=== PATIENT | female | born 1985 | race Caucasian/White ===

== ENCOUNTER 2021-04-02 09:11 | Observation (INO) | payer MEDICAID ==
[2021-04-02 09:16] VITALS: BMI 47.2
[2021-04-02] MEDS ORDERED: hydrALAZINE 20 MG/ML VIAL SLOW IVP PRN (10:25)
[2021-04-02] MEDS ORDERED: Lactated Ringer's 1,000 ML IV SCH (10:45)
[2021-04-02 11:15] LABS: #Eosinphils 0.1 10x3/uL (0.0-0.5); #Monocytes 0.8 10x3/uL (0.0-1.1); #Neutrophils 7.8 10x3/uL (1.5-8.4); %Basophils 0.4 % (0.0-2.0); %Eosinophils 1.1 % (0.0-6.0); %Lymphocytes 23.5 % (18.0-47.0); %Monocytes 6.7 % (0.0-10.0); Hemoglobin 11.4 g/dL (12.0-15.5); Mean Corpuscular Hemoglobin 29.5 pg (27.0-33.0); Mean Corpuscular Volume 86.8 fl (81.6-98.3); Mean Platelet Volume 11.5 fl (7.4-10.4); Platelet Count 230 10x3/uL (150-450); RBC Distribution Width 12.8 % (11.5-14.5); Red Blood Cell (RBC) Count 3.86 10x6/uL (3.90-5.03); White Blood Cell (WBC) Count 11.4 10x3/uL (3.5-10.5)
[2021-04-02 11:22] LABS: ALT (SGPT) 8 U/L (8-55); AST (SGOT) 10 U/L (5-34); Albumin 3.6 g/dL (3.5-5.0); Alkaline Phosphatase 79 U/L (40-110); Anion Gap 15 mmol/L (10-20); BUN (Urea Nitrogen) 6 mg/dL (7.0-18.7); Bilirubin, Total 0.2 mg/dL (0.2-1.2); Calc. Creatinine Clearance 229 mL/min (70-130); Calcium 8.8 mg/dL (7.8-10.44); Carbon Dioxide 22 mmol/L (22-29); Chloride 106 mmol/L (98-107); Globulin 2.9 g/dL (2.4-3.5); Glucose 103 mg/dL (70-105); Potassium 4.5 mmol/L (3.5-5.1); Protein, Total 6.5 g/dL (6.0-8.3); Sodium 138 mmol/L (136-145)
[2021-04-02 11:30] LABS: Bilirubin Neg (Negative); Blood, Urine 10 (Negative); Clarity Cloudy (Clear); Glucose, Urine (Dipstick) Normal (Negative); Ketone, Urine 5 mg/dL (Negative); Leukocyte 100 (Negative); Nitrite Negative (Negative); Protein, Urine (Dipstick) 30 mg/dl (Neg-Trace); Urobilinogen Normal mg/dL (Less than 2)
[2021-04-02 11:36] LABS: Urine Culture Reflex No No
[2021-04-02 11:37] LABS: Bacteria/HPF 3+ HPF (None Seen); RBC/HPF 0-3 HPF (0-3)
[2021-04-02] MEDS ORDERED: Acetaminophen 500 MG TAB PO SCH (12:00)
[2021-04-02 12:14] LABS: SARS-CoV-2 NAA Rapid Test Not Detected (NotDetected)
[2021-04-02] MEDS ORDERED: Butorphanol Tartrate 1 MG/ML VIAL SLOW IVP SCH (14:15)
[2021-04-02 15:09] LABS: Bilirubin Neg (Negative); Blood, Urine 10 (Negative); Clarity Slightly Cloudy (Clear); Glucose, Urine (Dipstick) Normal (Negative); Ketone, Urine Negative (Negative); Leukocyte 500 (Negative); Nitrite Negative (Negative); Protein, Urine (Dipstick) 30 mg/dl (Neg-Trace); Urobilinogen Normal mg/dL (Less than 2)
[2021-04-02 15:16] LABS: Urine Culture Reflex No No
[2021-04-02 15:17] LABS: Bacteria/HPF 4+ HPF (None Seen)
[2021-04-02 15:18] LABS: RBC/HPF 0-3 HPF (0-3); Squamous Epithelial 21-50 HPF (0-3)
[2021-04-02] MEDS ORDERED: Acetaminophen 325 MG TAB PO PRN (15:50)
[2021-04-02] MEDS: Lactated Ringer's 1,000 ML IV SCH (16:41)
[2021-04-02] MEDS: cefTRIAXone\\ROCEPHIN 1 GM in Sodium Chloride 0.9% 100 ML IVPB SCH (16:44)
[2021-04-02] MEDS: Ondansetron PF 4 MG/2 ML Vial IVP PRN (17:41)
[2021-04-02] MEDS ORDERED: Acetaminophen/Codeine 30-300mg Tablet PO PRN (19:24)
[2021-04-02] MEDS: Acetaminophen/Codeine 30-300mg Tablet PO PRN ×2 (19:50→22:49)
[2021-04-03] MEDS: Lactated Ringer's 1,000 ML IV SCH ×3 (01:40→18:17)
[2021-04-03] MEDS: Ondansetron PF 4 MG/2 ML Vial IVP PRN ×2 (01:40→11:03)
[2021-04-03] MEDS: Acetaminophen/Codeine 30-300mg Tablet PO PRN ×3 (04:20→15:31)
[2021-04-03] MEDS: cefTRIAXone\\ROCEPHIN 1 GM in Sodium Chloride 0.9% 100 ML IVPB SCH (15:37)
[2021-04-03] MEDS: Metoclopramide HCl 10 MG/2 ML VIAL IVP SCH ×4 (17:10→20:01)
[2021-04-03] MEDS: diphenhydrAMINE 50 MG/ML VIAL IVP SCH ×2 (17:10→18:17)
[2021-04-03 17:45] LABS: Bilirubin Neg (Negative); Blood, Urine 10 (Negative); Clarity Slightly Cloudy (Clear); Glucose, Urine (Dipstick) Normal (Negative); Ketone, Urine Negative (Negative); Leukocyte 25 (Negative); Nitrite Negative (Negative); Protein, Urine (Dipstick) Negative (Neg-Trace); Urobilinogen Normal mg/dL (Less than 2)
[2021-04-03 17:55] LABS: Bacteria/HPF None Seen HPF (None Seen); Mucous/LPF 1+ LPF (<2+); Oval Fat Bodies/HPF Rare HPF (None Seen); WBC/HPF 0-3 HPF (0-3)
[2021-04-03] MEDS ORDERED: traZODone HCl 50 MG TAB PO ONE (21:00)
[2021-04-04] MEDS: Lactated Ringer's 1,000 ML IV SCH ×2 (01:09→08:06)
[2021-04-04] MEDS: Acetaminophen/Codeine 30-300mg Tablet PO PRN ×3 (04:10→11:53)
[2021-04-04] MEDS: Ondansetron PF 4 MG/2 ML Vial IVP PRN (04:10)
[2021-04-04 11:13] VITALS: BP 130/72; TEMP 97.8
== END 2021-04-04 12:40 | disposition home or self-care (01) ==
LOC: CSHLD/OP 09:11 → CSHPP 17:17
PROVIDERS: ADMIT Obstetrics & Gynecology; ATTEND Obstetrics & Gynecology
DX: O99.891 Other specified diseases and conditions complicating pregnancy (principal); O99.342 Other mental disorders complicating pregnancy, second trimester; O09.522 Supervision of elderly multigravida, second trimester; O99.212 Obesity complicating pregnancy, second trimester; O99.322 Drug use complicating pregnancy, second trimester; O09.32 Supervision of pregnancy with insufficient antenatal care, second trimester; M54.9 Dorsalgia, unspecified; R10.9 Unspecified abdominal pain; F31.9 Bipolar disorder, unspecified; F43.10 Post-traumatic stress disorder, unspecified; F41.9 Anxiety disorder, unspecified; F12.90 Cannabis use, unspecified, uncomplicated; Z3A.22 22 weeks gestation of pregnancy; Z20.822 Contact with and (suspected) exposure to COVID-19; Z90.49 Acquired absence of other specified parts of digestive tract; Z87.59 Personal history of other complications of pregnancy, childbirth and the puerperium; Z87.891 Personal history of nicotine dependence; Z79.899 Other long term (current) drug therapy
CPT/HCPCS: 36415; 76705; 76775; 80053; 81001; 85025; 87086; 99285; G0378; J0595; J0696; J1200; J2405; J2765; J3490; J7120; U0002

== ENCOUNTER 2021-04-22 16:44 | Day surgery (SDC) | payer MEDICAID ==
[2021-04-22] MEDS ORDERED: hydrALAZINE 20 MG/ML VIAL SLOW IVP PRN (17:33)
[2021-04-22] MEDS ORDERED: Morphine 10 MG/ML VIAL IM SCH (17:45)
[2021-04-22] MEDS ORDERED: Promethazine HCl 25 MG/ML VIAL IM SCH (17:45)
[2021-04-22 18:05] VITALS: BMI 48.0
[2021-04-22 18:40] LABS: Bilirubin Neg (Negative); Blood, Urine Negative (Negative); Clarity Clear (Clear); Glucose, Urine (Dipstick) Normal (Negative); Ketone, Urine Negative (Negative); Leukocyte Negative (Negative); Nitrite Negative (Negative); Protein, Urine (Dipstick) Negative (Neg-Trace); Specific Gravity, Urine 1.015 (1.002-1.036); Urobilinogen Normal mg/dL (Less than 2)
[2021-04-22 18:41] LABS: Urine Culture Reflex No No
[2021-04-22 18:42] LABS: Amphetamine Not Detected (NotDetected); Barbiturates Screen Not Detected (NotDetected); Benzodiazepine Screen Detected (NotDetected); Cocaine Metabolite Screen Not Detected (NotDetected); Methadone Not Detected (NotDetected); Methamphetamine Not Detected (NotDetected); Opiate Screen Not Detected (NotDetected); Oxycodone Screen Not Detected (NotDetected); Phencyclidine (PCP) Not Detected (NotDetected); THC/Cannabinoid Screen Detected (NotDetected); Tricyclic Screen Detected (NotDetected)
[2021-04-22 18:48] LABS: Bacteria/HPF None Seen HPF (None Seen); RBC/HPF None Seen HPF (0-3); Squamous Epithelial 0-3 HPF (0-3); WBC/HPF None Seen HPF (0-3)
== END 2021-04-22 19:55 | disposition home or self-care (01) ==
LOC: CSHLD/OP 16:44
PROVIDERS: ATTEND Student in an Organized Health Care Education/Training Program
DX: O99.891 Other specified diseases and conditions complicating pregnancy (principal); O09.522 Supervision of elderly multigravida, second trimester; O99.212 Obesity complicating pregnancy, second trimester; O99.342 Other mental disorders complicating pregnancy, second trimester; O99.322 Drug use complicating pregnancy, second trimester; M25.552 Pain in left hip; R11.0 Nausea; F43.10 Post-traumatic stress disorder, unspecified; F41.9 Anxiety disorder, unspecified; F31.9 Bipolar disorder, unspecified; F12.90 Cannabis use, unspecified, uncomplicated; F19.90 Other psychoactive substance use, unspecified, uncomplicated; Z3A.25 25 weeks gestation of pregnancy; Z79.899 Other long term (current) drug therapy; Z87.59 Personal history of other complications of pregnancy, childbirth and the puerperium; Z90.49 Acquired absence of other specified parts of digestive tract; Z87.891 Personal history of nicotine dependence; Z98.890 Other specified postprocedural states
CPT/HCPCS: 80306; 81001; J2270; J2550

== ENCOUNTER 2021-04-24 11:02 | Observation (INO) | payer MEDICAID ==
[2021-04-24] MEDS ORDERED: Promethazine HCl 25 MG in Sodium Chloride 0.9% 50 ML IVPB PRN (13:12)
[2021-04-24] MEDS ORDERED: hydrALAZINE 20 MG/ML VIAL SLOW IVP PRN (13:15)
[2021-04-24] MEDS ORDERED: Lactated Ringer's 1,000 ML IV SCH (13:15)
[2021-04-24 14:19] LABS: #Eosinphils 0.2 10x3/uL (0.0-0.5); #Monocytes 0.8 10x3/uL (0.0-1.1); #Neutrophils 6.5 10x3/uL (1.5-8.4); %Basophils 0.4 % (0.0-2.0); %Eosinophils 1.8 % (0.0-6.0); %Lymphocytes 22.7 % (18.0-47.0); %Neutrophils 66.6 % (40.0-75.0); Hemoglobin 10.1 g/dL (12.0-15.5); Mean Corpuscular HGB CONC 34.1 g/dL (32.0-36.0); Mean Corpuscular Hemoglobin 30.4 pg (27.0-33.0); Mean Corpuscular Volume 89.2 fl (81.6-98.3); Mean Platelet Volume 10.9 fl (7.4-10.4); Platelet Count 213 10x3/uL (150-450); RBC Distribution Width 13.1 % (11.5-14.5); Red Blood Cell (RBC) Count 3.32 10x6/uL (3.90-5.03); White Blood Cell (WBC) Count 9.7 10x3/uL (3.5-10.5)
[2021-04-24 14:46] LABS: ALT (SGPT) 6 U/L (8-55); AST (SGOT) 6 U/L (5-34); Albumin 3.2 g/dL (3.5-5.0); Alkaline Phosphatase 77 U/L (40-110); Anion Gap 11 mmol/L (10-20); BUN (Urea Nitrogen) 7 mg/dL (7.0-18.7); Bilirubin, Total 0.1 mg/dL (0.2-1.2); Calc. Creatinine Clearance 0 mL/min (70-130); Calcium 8.5 mg/dL (7.8-10.44); Carbon Dioxide 23 mmol/L (22-29); Chloride 108 mmol/L (98-107); Globulin 2.8 g/dL (2.4-3.5); Glucose 118 mg/dL (70-105); Lipase 22 U/L (8-78); Potassium 3.7 mmol/L (3.5-5.1); Sodium 138 mmol/L (136-145)
[2021-04-24] MEDS ORDERED: Promethazine HCl 25 MG, Admixture Fee 1 EACH in Sodium Chloride 0.9% 50 ML IVPB PRN (15:00)
[2021-04-24] MEDS ORDERED: traMADol HCl 50 MG TAB PO SCH (15:00)
[2021-04-24] MEDS ORDERED: traZODone HCl 50 MG TAB PO PRN (15:45)
[2021-04-24 16:10] VITALS: BMI 48.0
[2021-04-24] MEDS ORDERED: Ondansetron PF 4 MG/2 ML Vial IVP SCH (17:00)
[2021-04-24] MEDS ORDERED: Morphine 4 MG/ML VIAL SLOW IVP SCH (17:00)
[2021-04-24] MEDS ORDERED: Morphine 4 MG/ML VIAL ONE (17:02)
[2021-04-24] MEDS ORDERED: Ondansetron PF 4 MG/2 ML Vial ONE (17:02)
[2021-04-24] MEDS ORDERED: Promethazine 25 MG TAB PO SCH ×2 (18:00→19:00)
[2021-04-24] MEDS: traMADol HCl 50 MG TAB PO PRN (20:06)
[2021-04-24] MEDS: Promethazine 25 MG TAB PO SCH ×2 (20:48→20:53)
[2021-04-24] MEDS ORDERED: traZODone HCl 150 MG TAB PO SCH (21:00)
[2021-04-24 21:51] LABS: HIV (1/2) Antibody/Antigen Non-Reactive (NonReactive); HIV 1/2 INDEX 0.09 S/CO (<1.00)
[2021-04-24] MEDS: Lactated Ringer's 1,000 ML IV SCH (22:06)
[2021-04-24 22:22] LABS: SARS-CoV-2 NAA Rapid Test Not Detected (NotDetected)
[2021-04-24] MEDS: Acetaminophen 500 MG TAB PO SCH (23:59)
[2021-04-25] MEDS: Promethazine 25 MG TAB PO SCH ×3 (01:00→08:17)
[2021-04-25] MEDS: Acetaminophen 500 MG TAB PO SCH (04:40)
[2021-04-25] MEDS: Lactated Ringer's 1,000 ML IV SCH (04:41)
[2021-04-25 07:41] VITALS: BP 119/67; TEMP 98.6
[2021-04-25] MEDS: traMADol HCl 50 MG TAB PO PRN (08:16)
== END 2021-04-25 09:09 | disposition home or self-care (01) ==
LOC: CSHLD/OP 11:02 → EDSTATUS 11:03 → CSHANTE 11:03
PROVIDERS: ADMIT Obstetrics & Gynecology; ATTEND Obstetrics & Gynecology
DX: O99.891 Other specified diseases and conditions complicating pregnancy (principal); O09.522 Supervision of elderly multigravida, second trimester; O99.212 Obesity complicating pregnancy, second trimester; O99.342 Other mental disorders complicating pregnancy, second trimester; O99.322 Drug use complicating pregnancy, second trimester; O09.32 Supervision of pregnancy with insufficient antenatal care, second trimester; R11.2 Nausea with vomiting, unspecified; M54.50 Low back pain, unspecified; M79.605 Pain in left leg; M79.604 Pain in right leg; F31.9 Bipolar disorder, unspecified; F41.9 Anxiety disorder, unspecified; F43.10 Post-traumatic stress disorder, unspecified; F19.90 Other psychoactive substance use, unspecified, uncomplicated; F12.90 Cannabis use, unspecified, uncomplicated; Z3A.25 25 weeks gestation of pregnancy; Z20.822 Contact with and (suspected) exposure to COVID-19; Z87.59 Personal history of other complications of pregnancy, childbirth and the puerperium; Z90.49 Acquired absence of other specified parts of digestive tract; Z98.890 Other specified postprocedural states; Z87.891 Personal history of nicotine dependence; Z79.899 Other long term (current) drug therapy
CPT/HCPCS: 36415; 76819; 80053; 82150; 83690; 85025; 86850; 86900; 86901; 87389; 96374; 96375; G0378; J2270; J2405; J2550; J7120; Q0169; U0002

== ENCOUNTER 2021-04-26 11:44 | Day surgery (SDC) | payer MEDICAID ==
[2021-04-26] MEDS ORDERED: hydrALAZINE 20 MG/ML VIAL SLOW IVP PRN (14:39)
[2021-04-26] MEDS ORDERED: Metoclopramide HCl 10 MG/2 ML VIAL IM SCH (14:45)
== END 2021-04-26 17:20 | disposition home health service (06) ==
LOC: CSHLD/OP 11:44
PROVIDERS: ATTEND Obstetrics & Gynecology
DX: O99.352 Diseases of the nervous system complicating pregnancy, second trimester (principal); O09.522 Supervision of elderly multigravida, second trimester; O99.212 Obesity complicating pregnancy, second trimester; O09.32 Supervision of pregnancy with insufficient antenatal care, second trimester; O99.342 Other mental disorders complicating pregnancy, second trimester; O99.322 Drug use complicating pregnancy, second trimester; G43.909 Migraine, unspecified, not intractable, without status migrainosus; F31.9 Bipolar disorder, unspecified; F41.9 Anxiety disorder, unspecified; F43.10 Post-traumatic stress disorder, unspecified; F12.90 Cannabis use, unspecified, uncomplicated; F19.90 Other psychoactive substance use, unspecified, uncomplicated; Z3A.26 26 weeks gestation of pregnancy; Z87.59 Personal history of other complications of pregnancy, childbirth and the puerperium; Z90.49 Acquired absence of other specified parts of digestive tract; Z87.891 Personal history of nicotine dependence; Z79.899 Other long term (current) drug therapy
CPT/HCPCS: 99282; J2765

== ENCOUNTER 2021-05-17 14:58 | Day surgery (SDC) | payer MEDICAID, OTHER ==
[2021-05-17] MEDS ORDERED: Magnesium 2 GM/50 ML BAG (IN WATER) ONE (15:33)
[2021-05-17] MEDS ORDERED: Lorazepam 2 MG/ML VIAL ONE (16:16)
[2021-05-17 16:17] LABS: #Eosinphils 0.2 10x3/uL (0.0-0.5); #Monocytes 0.7 10x3/uL (0.0-1.1); #Neutrophils 7.4 10x3/uL (1.5-8.4); %Basophils 0.3 % (0.0-2.0); %Eosinophils 1.6 % (0.0-6.0); %Lymphocytes 19.3 % (18.0-47.0); %Monocytes 6.9 % (0.0-10.0); %Neutrophils 71.4 % (40.0-75.0); Hemoglobin 10.2 g/dL (12.0-15.5); Mean Corpuscular HGB CONC 33.8 g/dL (32.0-36.0); Mean Corpuscular Volume 88.8 fl (81.6-98.3); Mean Platelet Volume 10.9 fl (7.4-10.4); Platelet Count 263 10x3/uL (150-450); RBC Distribution Width 12.9 % (11.5-14.5); White Blood Cell (WBC) Count 10.3 10x3/uL (3.5-10.5)
[2021-05-17 16:56] LABS: ALT (SGPT) 14 U/L (8-55); AST (SGOT) 14 U/L (5-34); Albumin 3.1 g/dL (3.5-5.0); Alkaline Phosphatase 108 U/L (40-110); Anion Gap 14 mmol/L (10-20); BUN (Urea Nitrogen) 4 mg/dL (7.0-18.7); Bilirubin, Total 0.2 mg/dL (0.2-1.2); Calc. Creatinine Clearance 0 mL/min (70-130); Calcium 8.1 mg/dL (7.8-10.44); Carbon Dioxide 19 mmol/L (22-29); Globulin 2.4 g/dL (2.4-3.5); Glucose 162 mg/dL (70-105); Protein, Total 5.5 g/dL (6.0-8.3)
[2021-05-17] MEDS ORDERED: Acetaminophen 500 MG TAB ONE (17:00)
[2021-05-17 17:19] LABS: Chloride 108 mmol/L (98-107); Potassium 3.6 mmol/L (3.5-5.1); Sodium 137 mmol/L (136-145)
[2021-05-17] MEDS ORDERED: hydrALAZINE 20 MG/ML VIAL SLOW IVP PRN (18:49)
[2021-05-17] MEDS ORDERED: Cyclobenzaprine 10 MG TAB PO SCH (19:00)
[2021-05-17] MEDS ORDERED: Lactated Ringer's 1,000 ML IV SCH (19:00)
[2021-05-17] MEDS ORDERED: Morphine 4 MG/ML VIAL SLOW IVP SCH (20:15)
== END 2021-05-17 21:00 | disposition home or self-care (01) ==
LOC: CSHERS 14:58 → CSHLD/OP 17:26
PROVIDERS: ATTEND Family Medicine
DX: O99.891 Other specified diseases and conditions complicating pregnancy (principal); O09.523 Supervision of elderly multigravida, third trimester; O99.353 Diseases of the nervous system complicating pregnancy, third trimester; O99.213 Obesity complicating pregnancy, third trimester; O09.33 Supervision of pregnancy with insufficient antenatal care, third trimester; O99.343 Other mental disorders complicating pregnancy, third trimester; R55 Syncope and collapse; M54.50 Low back pain, unspecified; G89.29 Other chronic pain; F43.10 Post-traumatic stress disorder, unspecified; F41.9 Anxiety disorder, unspecified; Z3A.29 29 weeks gestation of pregnancy; Z87.59 Personal history of other complications of pregnancy, childbirth and the puerperium; Z90.49 Acquired absence of other specified parts of digestive tract; Z87.891 Personal history of nicotine dependence; Z79.899 Other long term (current) drug therapy
CPT/HCPCS: 70450; 80053; 84484; 85025; 93005; 93010; J2060; J2270; J3475

== ENCOUNTER 2021-06-23 19:10 | Emergency (ER) | payer OTHER ==
[2021-06-23] MEDS ORDERED: Morphine 4 MG/ML VIAL ONE (19:33)
[2021-06-23 20:12] LABS: #Basophils 0.1 10x3/uL (0.0-0.2); #Eosinphils 0.3 10x3/uL (0.0-0.5); #Monocytes 0.9 10x3/uL (0.0-1.1); #Neutrophils 6.1 10x3/uL (1.5-8.4); %Basophils 0.7 % (0.0-2.0); %Eosinophils 3.1 % (0.0-6.0); %Lymphocytes 23.3 % (18.0-47.0); %Monocytes 8.9 % (0.0-10.0); %Neutrophils 60.8 % (40.0-75.0); Hemoglobin 7.5 g/dL (12.0-15.5); Mean Corpuscular HGB CONC 32.8 g/dL (32.0-36.0); Mean Corpuscular Hemoglobin 29.8 pg (27.0-33.0); Mean Corpuscular Volume 90.9 fl (81.6-98.3); Mean Platelet Volume 9.6 fl (7.4-10.4); Platelet Count 301 10x3/uL (150-450); RBC Distribution Width 13.8 % (11.5-14.5); Red Blood Cell (RBC) Count 2.52 10x6/uL (3.90-5.03); White Blood Cell (WBC) Count 10.1 10x3/uL (3.5-10.5)
[2021-06-23 20:22] LABS: ALT (SGPT) 24 U/L (8-55); AST (SGOT) 16 U/L (5-34); Albumin 2.9 g/dL (3.5-5.0); Alkaline Phosphatase 90 U/L (40-110); Anion Gap 13 mmol/L (10-20); BUN (Urea Nitrogen) 17 mg/dL (7.0-18.7); Bilirubin, Total 0.1 mg/dL (0.2-1.2); Calc. Creatinine Clearance 0 mL/min (70-130); Calcium 9.3 mg/dL (7.8-10.44); Carbon Dioxide 26 mmol/L (22-29); Chloride 105 mmol/L (98-107); Globulin 2.9 g/dL (2.4-3.5); Glucose 120 mg/dL (70-105); Potassium 4.2 mmol/L (3.5-5.1); Protein, Total 5.8 g/dL (6.0-8.3); Sodium 140 mmol/L (136-145)
[2021-06-23 21:12] LABS: Bilirubin Neg (Negative); Blood, Urine 150 (Negative); Clarity Clear (Clear); Glucose, Urine (Dipstick) Normal (Negative); Ketone, Urine Negative (Negative); Leukocyte 25 (Negative); Nitrite Negative (Negative); Protein, Urine (Dipstick) Negative (Neg-Trace); Urobilinogen Normal mg/dL (Less than 2)
[2021-06-23 21:32] LABS: Bacteria/HPF 1+ HPF (None Seen); Mucous/LPF None Seen LPF (<2+); RBC/HPF 21-50 HPF (0-3); Squamous Epithelial 0-3 HPF (0-3)
== END 2021-06-23 21:15 | disposition home or self-care (01) ==
LOC: CSHERS 19:10
DX: R10.30 Lower abdominal pain, unspecified (principal); G89.18 Other acute postprocedural pain
CPT/HCPCS: 71275; 74177; 80053; 81003; 81015; 83605; 85025; 94760; 96374; J2270

== ENCOUNTER 2021-06-27 10:13 | Emergency (ER) | payer OTHER ==
[2021-06-27 11:50] LABS: Hemoglobin 7.7 g/dL (12.0-15.5); MDiff Complete? YES; Mean Corpuscular HGB CONC 31.3 g/dL (32.0-36.0); Mean Corpuscular Hemoglobin 29.2 pg (27.0-33.0); Mean Corpuscular Volume 93.2 fl (81.6-98.3); Mean Platelet Volume 9.1 fl (7.4-10.4); Platelet Count 322 10x3/uL (150-450); RBC Distribution Width 13.4 % (11.5-14.5); Red Blood Cell (RBC) Count 2.64 10x6/uL (3.90-5.03); White Blood Cell (WBC) Count 10.9 10x3/uL (3.5-10.5)
[2021-06-27 11:58] LABS: INR-International Normal Ratio 0.9; PTT 24.2 sec (22.0-33.0); Prothrombin Time 9.8 sec (9.5-12.1)
[2021-06-27 12:01] LABS: ALT (SGPT) 22 U/L (8-55); AST (SGOT) 11 U/L (5-34); Albumin 3.1 g/dL (3.5-5.0); Alkaline Phosphatase 126 U/L (40-110); Anion Gap 13 mmol/L (10-20); BUN (Urea Nitrogen) 16 mg/dL (7.0-18.7); Bilirubin, Total 0.1 mg/dL (0.2-1.2); Calc. Creatinine Clearance 0 mL/min (70-130); Calcium 8.7 mg/dL (7.8-10.44); Carbon Dioxide 24 mmol/L (22-29); Chloride 107 mmol/L (98-107); Globulin 2.6 g/dL (2.4-3.5); Glucose 115 mg/dL (70-105); Potassium 4.4 mmol/L (3.5-5.1); Protein, Total 5.7 g/dL (6.0-8.3); Sodium 140 mmol/L (136-145)
[2021-06-27 12:06] LABS: Band 3 % (5-11); Eosinophils 2 % (0-10); Lymphocytes 18 % (21-51); Monocytes 7 % (0-10); Neutrophil 70 % (42-75)
[2021-06-27 12:07] LABS: Platelet Morphology Comment Appears Adequate
[2021-06-27 12:08] LABS: RBC Morphology Normal
[2021-06-27] MEDS ORDERED: Tranexamic Acid 1,000 MG/10 ML VIAL ONE (13:45)
[2021-06-27] MEDS ORDERED: Ondansetron PF 4 MG/2 ML Vial ONE (13:46)
[2021-06-27] MEDS ORDERED: Morphine 4 MG/ML VIAL ONE ×2 (13:46→14:05)
[2021-06-27 14:43] LABS: Bilirubin Neg (Negative); Blood, Urine 250 (Negative); Clarity Slightly Cloudy (Clear); Glucose, Urine (Dipstick) Normal (Negative); Ketone, Urine Negative (Negative); Leukocyte 500 (Negative); Nitrite Negative (Negative); Protein, Urine (Dipstick) 15 mg/dl (Neg-Trace); Urobilinogen Normal mg/dL (Less than 2)
[2021-06-27 14:54] LABS: Squamous Epithelial 0-3 HPF (0-3)
[2021-06-27 14:55] LABS: Bacteria/HPF Rare-Few HPF (None Seen)
== END 2021-06-27 17:52 | disposition home or self-care (01) ==
LOC: CSHERS 10:13
DX: O72.1 Other immediate postpartum hemorrhage (principal); O24.439 Gestational diabetes mellitus in the puerperium, unspecified control; G89.18 Other acute postprocedural pain; R10.30 Lower abdominal pain, unspecified; R06.02 Shortness of breath; I10 Essential (primary) hypertension; R00.0 Tachycardia, unspecified; F43.10 Post-traumatic stress disorder, unspecified; Z37.9 Outcome of delivery, unspecified
CPT/HCPCS: 71045; 71275; 76856; 80053; 81003; 81015; 83605; 83880; 84484; 85025; 85610; 85730; 86850; 86900; 86901; 87040; 87086; 93005; 96374; 96375; 96376; J2270; J2405

== ENCOUNTER 2021-11-02 11:44 | Emergency (ER) | payer MEDICAID ==
[2021-11-02] MEDS ORDERED: Ketorolac Tromethamine 30 MG/ML VIAL ONE (13:11)
[2021-11-02] MEDS ORDERED: Dexamethasone 4 MG TAB ONE (13:29)
== END 2021-11-02 13:52 | disposition home or self-care (01) ==
LOC: CSHERS 11:44
DX: M54.50 Low back pain, unspecified (principal); F43.10 Post-traumatic stress disorder, unspecified
CPT/HCPCS: 96372; 99283; J1885; J8540

== ENCOUNTER 2023-01-28 10:02 | Observation (INO) | payer OTHER ==
[2023-01-28] MEDS ORDERED: Acetaminophen 325 MG TAB ONE (10:45)
[2023-01-28 11:21] LABS: Hematocrit 38.3 % (34.9-44.5); Hemoglobin 13.5 g/dL (12.0-15.5); Mean Corpuscular HGB CONC 35.2 g/dL (32.0-36.0); Mean Corpuscular Hemoglobin 29.2 pg (27.0-33.0); Mean Corpuscular Volume 82.9 fl (81.6-98.3); Mean Platelet Volume 12.4 fl (7.4-10.4); RBC Distribution Width 12.9 % (11.5-14.5); Red Blood Cell (RBC) Count 4.62 10x6/uL (3.90-5.03); White Blood Cell (WBC) Count 5.6 10x3/uL (3.5-10.5)
[2023-01-28 11:22] LABS: #Basophils 0.1 10x3/uL (0.0-0.2); #Eosinphils 0.1 10x3/uL (0.0-0.5); #Monocytes 0.4 10x3/uL (0.0-1.1); #Neutrophils 3.1 10x3/uL (1.5-8.4); %Basophils 0.9 % (0.0-2.0); %Eosinophils 2.5 % (0.0-6.0); %Lymphocytes 33.6 % (18.0-47.0); %Monocytes 6.3 % (0.0-10.0); %Neutrophils 56.5 % (40.0-75.0); Platelet Count 175 10x3/uL (150-450)
[2023-01-28] MEDS ORDERED: Promethazine HCl 25 MG in Sodium Chloride 0.9% 50 ML IVPB SCH (11:30)
[2023-01-28 12:02] LABS: BHCG - Serum Negative (NEGATIVE); Pregs Control Background? CLEAR/WHITE (CLR/WHITE); Pregs Control Bar Appear? YES (CONTROL BAR)
[2023-01-28 12:16] LABS: ALT (SGPT) 27 U/L (8-55); AST (SGOT) 38 U/L (5-34); Albumin 3.8 g/dL (3.5-5.0); Alkaline Phosphatase 131 U/L (40-110); Anion Gap 13 mmol/L (10-20); BUN (Urea Nitrogen) 6 mg/dL (7.0-18.7); Bilirubin, Total 0.4 mg/dL (0.2-1.2); Calc. Creatinine Clearance 0 mL/min (70-130); Calcium 8.4 mg/dL (7.8-10.44); Carbon Dioxide 26 mmol/L (22-29); Chloride 106 mmol/L (98-107); Estimated GFR 98; Globulin 2.4 g/dL (2.4-3.5); Glucose 110 mg/dL (70-105); Potassium 3.8 mmol/L (3.5-5.1); Protein, Total 6.2 g/dL (6.0-8.3); Sodium 141 mmol/L (136-145)
[2023-01-28 12:21] LABS: Troponin I Less than 0.010 ng/mL (< 0.028)
[2023-01-28] MEDS ORDERED: Aspirin Chewable 81 MG TAB ONE (13:37)
[2023-01-28] MEDS ORDERED: Metoclopramide HCl 10 MG/2 ML VIAL ONE (13:38)
[2023-01-28] MEDS ORDERED: Labetalol HCl 100 MG/20 ML VIAL SLOW IVP PRN (14:08)
[2023-01-28] MEDS ORDERED: Promethazine HCl 25 MG in Sodium Chloride 0.9% 50 ML IVPB PRN (14:08)
[2023-01-28] MEDS ORDERED: hydrALAZINE 20 MG/ML VIAL SLOW IVP PRN (14:08)
[2023-01-28] MEDS ORDERED: Ketorolac Tromethamine 30 MG/ML VIAL IVP PRN (14:08)
[2023-01-28] MEDS ORDERED: Acetaminophen 650 MG Suppository PR PRN (14:08)
[2023-01-28] MEDS ORDERED: Guaifenesin DM 100-10/5 ML UDCUP PO PRN (14:08)
[2023-01-28] MEDS ORDERED: Senokot S 8.6-50 MG TAB PO PRN (14:08)
[2023-01-28 14:55] LABS: Amphetamine Not Detected (NotDetected); Barbiturates Screen Not Detected (NotDetected); Benzodiazepine Screen Detected (NotDetected); Cocaine Metabolite Screen Not Detected (NotDetected); Methadone Not Detected (NotDetected); Methamphetamine Not Detected (NotDetected); Opiate Screen Not Detected (NotDetected); Oxycodone Screen Not Detected (NotDetected); Phencyclidine (PCP) Not Detected (NotDetected); THC/Cannabinoid Screen Detected (NotDetected); Tricyclic Screen Not Detected (NotDetected)
[2023-01-28 15:22] LABS: Troponin I Less than 0.010 ng/mL (< 0.028)
[2023-01-28] MEDS ORDERED: Lorazepam 2 MG/ML VIAL SLOW IVP PRN (16:12)
[2023-01-28] MEDS ORDERED: Lorazepam 2 MG/ML VIAL ONE (16:19)
[2023-01-28 17:13] LABS: Free T4 (Free Thyroxine) 0.99 ng/dL (0.70-1.48)
[2023-01-28 18:01] LABS: Troponin I Less than 0.010 ng/mL (< 0.028)
[2023-01-28 20:26] VITALS: BMI 47.6
[2023-01-28] MEDS: Acetaminophen 325 MG TAB PO PRN (21:11)
[2023-01-28] MEDS: Promethazine 25 MG TAB PO PRN (21:11)
[2023-01-28] MEDS ORDERED: Buprenorphine 8mg/Naloxone 2mg per 1 FILM SL SCH (21:15)
[2023-01-29 05:49] VITALS: TEMP 97.8
[2023-01-29 06:34] LABS: #Basophils 0.1 10x3/uL (0.0-0.2); #Eosinphils 0.2 10x3/uL (0.0-0.5); #Monocytes 0.4 10x3/uL (0.0-1.1); #Neutrophils 1.8 10x3/uL (1.5-8.4); %Lymphocytes 50.5 % (18.0-47.0); %Monocytes 8.3 % (0.0-10.0); Anion Gap 16 mmol/L (10-20); BUN (Urea Nitrogen) 8 mg/dL (7.0-18.7); Calc. Creatinine Clearance 186 mL/min (70-130); Calcium 8.6 mg/dL (7.8-10.44); Carbon Dioxide 22 mmol/L (22-29); Cardiac Risk 7.3 (Less than 4.5); Chloride 107 mmol/L (98-107); Cholesterol 145 mg/dl (< 200 Desired); Estimated GFR 97; Glucose 100 mg/dL (70-105); HDL Cholesterol 20 mg/dL (>60 Neg Risk); Hematocrit 36.2 % (34.9-44.5); Hemoglobin 12.6 g/dL (12.0-15.5); LDL Cholesterol, Calculated 97 mg/dL; Mean Corpuscular HGB CONC 34.8 g/dL (32.0-36.0); Mean Corpuscular Hemoglobin 29.1 pg (27.0-33.0); Mean Corpuscular Volume 83.6 fl (81.6-98.3); Platelet Count 149 10x3/uL (150-450); Potassium 3.7 mmol/L (3.5-5.1); RBC Distribution Width 12.9 % (11.5-14.5); Red Blood Cell (RBC) Count 4.33 10x6/uL (3.90-5.03); Sodium 141 mmol/L (136-145); Triglycerides 138 mg/dL (Less than 150)
[2023-01-29] MEDS ORDERED: Amlodipine 5 MG TAB PO SCH (09:00)
[2023-01-29] MEDS ORDERED: Aspirin 81 mg Enteric Coated Tablet PO SCH (09:00)
[2023-01-29] MEDS ORDERED: Buprenorphine 8mg/Naloxone 2mg per 1 FILM SL SCH ×4 (09:00→21:00)
[2023-01-29] MEDS: Acetaminophen 325 MG TAB PO PRN (10:17)
[2023-01-29 11:16] VITALS: BP 138/72
[2023-01-29] MEDS: Promethazine 25 MG TAB PO PRN (12:19)
== END 2023-01-29 12:41 | disposition home or self-care (01) ==
LOC: CSHERS 10:02 → CSHTELE 20:23
PROVIDERS: ADMIT Student in an Organized Health Care Education/Training Program; ATTEND Internal Medicine
DX: I16.0 Hypertensive urgency (principal); R42 Dizziness and giddiness; E03.9 Hypothyroidism, unspecified; Z87.891 Personal history of nicotine dependence; Z79.899 Other long term (current) drug therapy
CPT/HCPCS: 70450; 70551; 71045; 80048; 80053; 80061; 80306; 83880; 84439; 84481; 84484; 84703; 85025; 85379; 93005; 94760; 96365; 96366; 96368; 96372; 96375; G0378; J0571; J1650; J1885; J2060; J2550; J2765; Q0169

== ENCOUNTER 2023-12-03 15:17 | Outpatient (CLI) | payer OTHER | END 2023-12-03 15:18 | disposition home or self-care (01) | LOC: CSHMRI 15:17 | PROVIDERS: ATTEND Student in an Organized Health Care Education/Training Program | DX: M79.604 Pain in right leg (principal); M47.816 Spondylosis without myelopathy or radiculopathy, lumbar region | CPT/HCPCS: 72148 ==